=== PATIENT | female | born 1940 | race Caucasian/White ===

== ENCOUNTER 2017-09-02 09:03 | Emergency (ER) | payer MEDICARE, MEDICAID ==
[~2017-09-02] VITALS: Wt 35.9 kg
[2017-09-02 10:12] LABS: HEMATOCRIT 31.9 % (35.0-45.0); HEMOGLOBIN 10.6 g/dl (12.0-16.0); MEAN CORPUSCULAR HEMOGLOBIN 27.5 PG (27.0-31.0); MEAN CORPUSCULAR HGB CONC 33.3 % (33.0-36.5); MEAN CORPUSCULAR VOLUME 82.6 FL (78-98); PLATELET COUNT 395 X10'3 (140-440); RED BLOOD COUNT 3.86 X10'6 (4.20-5.60); RED CELL DISTRIBUTION WIDTH 18.6 % (11.5-14.5)
[2017-09-02 10:30] LABS: TOTAL CELLS COUNTED 100
[2017-09-02 10:31] LABS: PLATELET ESTIMATE NORMAL
[2017-09-02 10:32] LABS: ANISOCYTOSIS 2+; POLYCHROMASIA 1+; ROULEAUX 1+
[2017-09-02 10:33] LABS: TOXIC GRANULATION 1+
[2017-09-02 10:37] LABS: ELLIPTOCYTES 1+; POIKILOCYTOSIS FEW
[2017-09-02 10:47] LABS: ALANINE AMINOTRANSFERASE 25 U/L (12-78); ALBUMIN 2.8 G/DL (3.4-5.0); ALBUMIN/GLOBULIN RATIO 0.8 (1.1-1.5); ALKALINE PHOSPHATASE 84 IU/L (46-116); ANION GAP 6 (8-16); ASPARTATE AMINO TRANSFERASE 20 U/L (10-37); BILIRUBIN,TOTAL 0.3 MG/DL (0.1-1.0); BLOOD UREA NITROGEN 24 MG/DL (7-18); BUN/CREATININE RATIO 35.3 (6.6-38.0); CALCIUM 8.2 MG/DL (8.5-10.1); CHLORIDE 105 MMOL/L (99-107); CREATINE KINASE 76 U/L (26-192); CREATININE 0.68 MG/DL (0.40-0.90); ETHANOL < 0.010 GM/DL (0.0-0.010); GLUCOSE 101 MG/DL (70-104); POTASSIUM 4.3 MMOL/L (3.5-5.1); SODIUM 142 MMOL/L (135-145); TOTAL CARBON DIOXIDE 31.1 MMOL/L (24-32); TOTAL PROTEIN 6.5 G/DL (6.4-8.2); eGFR 84 ML/MIN
[2017-09-02] MEDS ORDERED: normal saline 1000ML IV soln IVB ONE (11:40)
[2017-09-02] MEDS ORDERED: folic acid 1mg/0.2ml inj IV ONE (11:40)
[2017-09-02] MEDS ORDERED: IRON,CARBONYL (45 MG ELEMENTAL IRON) SR.TABLET PO ONE (11:40)
[2017-09-02] MEDS ORDERED: thiamine 100mg/ml 2ml inj. IV ONE (11:40)
[2017-09-02] MEDS ORDERED: THIAMINE IV ONE (12:35)
[2017-09-02] MEDS ORDERED: NORMAL SALINE IV ONE (12:35)
[2017-09-02] MEDS ORDERED: FOLIC ACID IV ONE (12:35)
[2017-09-02] MEDS ORDERED: NO HOME MEDS (16:56)
[2017-09-02 17:12] LABS: CLARITY,URINE CLEAR (Clear); COLOR,URINE YELLOW (Yellow); GLUCOSE, URINE 250 mg/dl (Neg); KETONES,URINE NEGATIVE (Neg); LEUKOCYTE ESTERASE ,URINE NEGATIVE (Neg); NITRITES, URINE NEGATIVE (Neg); OCCULT BLOOD,URINE NEGATIVE (Neg); PROTEIN,URINE NEGATIVE (Neg); UROBILINOGEN,URINE 0.2 E.U/dL (0.2-1.0)
[2017-09-02 17:13] LABS: UA COLLECTION TYPE CLN CATCH MIDSTREAM
[2017-09-02 17:15] LABS: URINE AMPHETAMINE SCREEN NEGATIVE (Neg); URINE BARBITUATE SCREEN NEGATIVE (Neg); URINE BENZODIAZEPINES SCREEN NEGATIVE (Neg); URINE CANNABINOID SCREEN NEGATIVE (Neg); URINE COCAINE SCREEN NEGATIVE (Neg); URINE METHADONE SCREEN NEGATIVE (Neg); URINE OPIATE SCREEN NEGATIVE (Neg); URINE PHENCYCLIDINE SCREEN NEGATIVE (Neg)
[2017-09-03] MEDS: nicotine 7mg patch - 24hr TD SCH (11:18)
[2017-09-03] MEDS: Protein Smoothie (high protein) 240ml (8oz) cup PO SCH (17:57)
[2017-09-04] MEDS: nicotine 7mg patch - 24hr TD SCH (08:00)
[2017-09-04] MEDS: Protein Smoothie (high protein) 240ml (8oz) cup PO SCH ×3 (09:10→17:57)
[2017-09-05] MEDS: nicotine 7mg patch - 24hr TD SCH (08:35)
[2017-09-05] MEDS: Protein Smoothie (high protein) 240ml (8oz) cup PO SCH ×3 (08:35→18:04)
[2017-09-06] MEDS: Protein Smoothie (high protein) 240ml (8oz) cup PO SCH ×3 (07:28→18:00)
[2017-09-06] MEDS: nicotine 7mg patch - 24hr TD SCH (08:00)
[2017-09-07] MEDS: Protein Smoothie (high protein) 240ml (8oz) cup PO SCH ×4 (08:00→17:58)
[2017-09-07] MEDS: nicotine 7mg patch - 24hr TD SCH (11:44)
[2017-09-08] MEDS: nicotine 7mg patch - 24hr TD SCH (07:25)
[2017-09-08] MEDS: Protein Smoothie (high protein) 240ml (8oz) cup PO SCH ×3 (09:08→18:03)
[2017-09-09] MEDS: nicotine 7mg patch - 24hr TD SCH (07:14)
[2017-09-09] MEDS: Protein Smoothie (high protein) 240ml (8oz) cup PO SCH ×3 (08:47→17:58)
[2017-09-10] MEDS: Protein Smoothie (high protein) 240ml (8oz) cup PO SCH ×3 (08:42→17:47)
[2017-09-10] MEDS: nicotine 7mg patch - 24hr TD SCH (08:44)
[2017-09-11] MEDS: Protein Smoothie (high protein) 240ml (8oz) cup PO SCH ×3 (08:51→18:00)
[2017-09-11 19:52] VITALS: BP 150/75
== END 2017-09-11 20:29 ==
LOC: ER 09:04 → MERGE 09:04 → ER 09-11 20:29
DX: F29 Unspecified psychosis not due to a substance or known physiological condition (principal); R62.7 Adult failure to thrive; Z86.73 Personal history of transient ischemic attack (TIA), and cerebral infarction without residual deficits; Z60.2 Problems related to living alone
CPT/HCPCS: 36415; 71045; 80053; 80305; 80320; 81003; 82550; 83880; 84443; 84484; 85025; 93005; 96361; 96374; 96375; 99285; J3411; J3490; J7030